=== PATIENT | male | born 1960 | race Caucasian/White ===

== ENCOUNTER → 2016-12-05 | Outpatient (CLI) | payer BC ==
[~2016-12-05] MED LIST: AMOX500C3 PO; ASPI81TA28 PO; ATOR-24 PO; CLOP1TAB15 PO; ISOS-11 PO; LISI-725 PO; METO25TA56 PO; NTRGSL/4 SL; TRAM-10 PO
[2016-12-05 17:44] LABS: BASO % 0.4 %; BASO ABS # 0.04 K/uL (0-0.2); COMPLETE YES; EOS % 2.5 %; HEMATOCRIT 43.9 % (42-52); IG% 0.4 %; LYMPH % 11.8 %; LYMPH ABS # 1.09 K/uL (1.2-3.4); MEAN CELL VOLUME 93.2 fL (80-100); MEAN CORPUSCULAR HEMOGLOBIN 30.6 pg (25-34); MEAN CORPUSCULAR HGB CONC 32.8 g/dl (32-36); MEAN PLATELET VOLUME 11.2 fL (7.4-10.4); MONO % 8.2 %; NEUT % 76.7 %; PLATELET COUNT 162 K/uL (130-400); RED BLOOD COUNT 4.71 M/uL (4.7-6.1)
[2016-12-05 18:00] LABS: ALT/SGPT 34 U/L (12-78); AST/SGOT 22 U/L (15-37); BLOOD UREA NITROGEN 19 mg/dl (7-18); BUN/CREATININE RATIO 17.4 (10-20); CALCIUM 8.9 mg/dl (8.5-10.1); CARBON DIOXIDE 28 mmol/L (21-32); CHLORIDE 104 mmol/L (98-107); GLUCOSE 95 mg/dl (70-99); POTASSIUM 3.7 mmol/L (3.5-5.1); SODIUM 137 mmol/L (136-145)
[2016-12-05 18:11] LABS: ALB/GLOB RATIO 1.3 (0.9-2); ALKALINE PHOSPHATASE 87 U/L (45-117); CHOLESTEROL 120 mg/dl (0-200); CHOLESTEROL/HDL RATIO 2.7; HDL CHOLESTEROL 44 mg/dl; LDL CHOLESTEROL CALCULATED 26 mg/dl; PROSTATE SPECIFIC ANTIGEN 0.538 ng/ml (0.000-4.000); TRIGLYCERIDES 250 mg/dl (0-150); VERY LOW DENSITY LIPOPROT CALC 50 mg/dl
== END | disposition home or self-care (01) ==
LOC: C.LABBFT 14:04
PROVIDERS: ATTEND Internal Medicine
DX: I25.10 Atherosclerotic heart disease of native coronary artery without angina pectoris (principal); D64.9 Anemia, unspecified; Z12.5 Encounter for screening for malignant neoplasm of prostate

== ENCOUNTER → 2017-01-07 | Day surgery (SDC) | payer BC ==
[2016-12-23 13:22] VITALS: BMI 39.0
[~2017-01-07] VITALS: Ht 170.2 cm; Wt 113.6 kg
[~2017-01-07] MED LIST changes: -LISI-725 PO; +PROPOFOL IV EMULSION 10 MG/ML 20 ML VIAL IV ONE; +SODIUM CHLORIDE 0.9% 500ML 500 ML IV ONE
[2017-01-07 08:02] VITALS: Ht 170.2 cm; Wt 113.6 kg
--- NOTE | 2017-01-07 08:42 | Endo History and Physical ---
History & Physical Date of Service: Jan 07, 2017. Chief Complaint: hx colon polyps Referring Physician: Dr. Galloway History of Present Illness 56 yo CM who presents for colonoscopy secondary to history of colon polyps. Past Medical History Angioplasty/Stent, Reflux, High Cholesterol, Sleep Apnea, Hypertension, [place] Past Surgical History Hx Cardiac Surgery: Yes (HEART CATH-1 STENT PLACED) Hx Internal Defibrillator: No Hx Pacemaker: No Hx Abdominal Surgery: Yes (INGUINAL HERNIA X 2, APPY) Hx of Implantable Prosthesis: No Hx Post-Op Nausea and Vomiting: No Hx Cancer Surgery: No Hx Thoracic Surgery: No Hx Orthopedic: Yes (LT FOOT RECONSTRUCTION) Hx Urinary Tract Surgery: No Family History None Social History Smoking Status: Light Tobacco Smoker Hx Substance Use: Yes (MARIJUANA OCCASIONALLY) Hx Alcohol Use: Yes (OCCASIONALLY) Allergies Coded Allergies: Penicillins (Verified Allergy, Unknown, UNSURE OF REASON, 12/23/16) Current Medications Reported Home Medications Medications Dose Route/Sig Max Daily Dose Days Date Category Dose Instructions Ultram (Tramadol HCl) 50 Mg Tab 1 Tab PO Q12 PRN 05/29/15 Reported TAKE 1 TABLE EVERY 12 HOURS NEEDED FOR PAIN Nitrostat (Nitroglycerin) 0.4 Mg Tab 1 Tab SL UD PRN 05/29/[address] 1 TABLET UNDER TONGUE EVERY 5 MINUTES UP TO 3 DOSES NEEDED FOR CHEST PAIN Plavix (Clopidogrel Bisulfate) 75 Mg Tab 75 Mg PO QAM 05/29/15 Reported Lipitor (Atorvastatin Calcium) 40 Mg Tab 1 Tab PO QAM 05/29/15 Reported Aspirin Ec (Aspirin) 81 Mg Tab 81 Mg PO QAM 05/29/15 Reported Amoxil (Amoxicillin) 500 Mg Cap 500 Mg PO UD 05/30/14 Reported take 4 tablets prn 1 hour prior to dental visit Isosorbide Mononitrate ER (Isosorbide Mononitrate) 30 Mg Tabcr 30 Mg PO QAM 05/30/14 Reported Lopressor (Metoprolol Tartrate) 25 Mg Tab 1 Tab PO QAM 05/30/14 Reported Vital Signs Weight (Kilograms): 113.64 Height (Feet): 5 Height (Inches): 7 Date Time Temp Pulse Resp B/P (MAP) Pulse Ox O2 Delivery O2 Flow Rate FiO2 01/07/17 08:14 36.8 60 18 125/71 (89) 96 Room Air Physical Exam General Appearance: WD/WN, no apparent distress Respiratory/Chest: Auscultation: breath sounds normal Cardiovascular: Heart Auscultation: RRR Abdomen: Bowel Sounds: normal Inspection & Palpation: soft, non-distended, no tenderness, guarding & rebound Assessment and Plan Assessment: 56 yo CM who presents for colonoscopy secondary to history of colon polyps. Plan: Proceed with colonoscopy.
--- NOTE | 2017-01-07 09:08 | Discharge Instructions ---
Endoscopy Patient Instructions Date / Procedure(s) Performed Jan 07, 2017. Colonoscopy Allergy Information Coded Allergies: Penicillins (Verified Allergy, Unknown, UNSURE OF REASON, 12/23/16) Discharge Date / Findings Jan 07, 2017. Colon polyps Diverticulosis Medication Instructions Stopped Medication(s): Plavix stopped 5 days ago patient states along with ASA 81mg. OK to resume all medications today as prescribed Reported Home Medications Medications Dose Route/Sig Max Daily Dose Days Date Category Dose Instructions Ultram (Tramadol HCl) 50 Mg Tab 1 Tab PO Q12 PRN 05/29/15 Reported TAKE 1 TABLE EVERY 12 HOURS NEEDED FOR PAIN Nitrostat (Nitroglycerin) 0.4 Mg Tab 1 Tab SL UD PRN 05/29/[address] 1 TABLET UNDER TONGUE EVERY 5 MINUTES UP TO 3 DOSES NEEDED FOR CHEST PAIN Plavix (Clopidogrel Bisulfate) 75 Mg Tab 75 Mg PO QAM 05/29/15 Reported Lipitor (Atorvastatin Calcium) 40 Mg Tab 1 Tab PO QAM 05/29/15 Reported Aspirin Ec (Aspirin) 81 Mg Tab 81 Mg PO QAM 05/29/15 Reported Amoxil (Amoxicillin) 500 Mg Cap 500 Mg PO UD 05/30/14 Reported take 4 tablets prn 1 hour prior to dental visit Isosorbide Mononitrate ER (Isosorbide Mononitrate) 30 Mg Tabcr 30 Mg PO QAM 05/30/14 Reported Lopressor (Metoprolol Tartrate) 25 Mg Tab 1 Tab PO QAM 05/30/14 Reported Provider Instructions Activity Restrictions - No exercising or heavy lifting for 24 hours. - Do not drink alcohol the day of the procedure. - Do not drive a car or operate machinery until the day after the procedure. - Do not make any important decisions or sign important papers in 24 hours after the procedure. Following Day: - Return to full activity which may include returning to work/school. Diet Start your diet with liquids and light foods (jello, soup, juice, toast). Then eat your usual diet if not nauseated. Treatment For Common After Affects For mild abdominal pain, bloating, or excessive gas: - Rest - Eat lightly - Lie on right side Follow-Up Information Follow-up with Dr. Galloway as scheduled Anesthesia Information What You Should Know You have had a procedure that required some medicine to reduce anxiety and discomfort. This treatment is called moderate sedation. After receiving the treatment, you may be sleepy, but you will be able to breathe on your own. The effects of the treatment may last for several hours. Follow these instructions along with Activity/Diet recommendations noted above: * Do NOT do anything where dizziness or clumsiness would be dangerous. * Rest quietly at home today, then you can be up and about tomorrow. * Have a responsible person stay with you the rest of today. * You may have had an I.V. today. If so, you may take the dressing off later today. Recommendations Call your doctor if: * Trouble breathing * Continuous vomiting for more than 24 hours * Temperature above 101 degrees * Severe abdominal pain or bloating * Pain not relieved by pain medicine ordered * There is increased drainage or redness from any incision * A large amount of rectal bleeding greater than 2-3 tablespoons. (If you had a polyp/s removed or have hemorrhoids, a small amount of blood - from the rectum is to be expected.) * You have any unanswered questions or concerns. IN THE EVENT OF A SERIOUS EMERGENCY, GO TO THE NEAREST EMERGENCY ROOM Your discharge instructions were prepared by provider Antwan Sandoval. Patient Instructions Signature Page Tom Scales Patient (or Guardian) Signature/Date: I have read and understand the instructions given to me by my caregivers. Caregiver/RN/Doctor Signature/Date: The above-named patient and/or guardian has received patient instructions on this date. + Original Patient Signature Page (only) stays with chart. Please make copy for patient.
--- NOTE | 2017-01-07 09:15 | GI REPORT ---
Procedure Date: 01/07/2017 8:27 AM Procedure: Colonoscopy Indications: High risk colon cancer surveillance: Personal history of colonic polyps Medicines: Monitored Anesthesia Care Complications: No immediate complications. Estimated Blood Loss: Estimated blood loss: none. Procedure: Pre-Anesthesia Assessment: - Prior to the procedure, a History and Physical was performed, and patient medications and allergies were reviewed. The patient's tolerance of previous anesthesia was also reviewed. The risks and benefits of the procedure and the sedation options and risks were discussed with the patient. All questions were answered, and informed consent was obtained. Prior Anticoagulants: The patient last took aspirin 5 days and Plavix (clopidogrel) 5 days prior to the procedure. ASA Grade Assessment: III - A patient with severe systemic disease. After reviewing the risks and benefits, the patient was deemed in satisfactory condition to undergo the procedure. After I obtained informed consent, the scope was passed under direct vision. Throughout the procedure, the patient's blood pressure, pulse, and oxygen saturations were monitored continuously. The scope was introduced through the anus and advanced to the terminal ileum. The colonoscopy was performed without difficulty. The patient tolerated the procedure well. The quality of the bowel preparation was good. The terminal ileum, ileocecal valve, appendiceal orifice, and rectum were photographed. Findings: A 15 mm polyp was found at the ileocecal valve. The polyp was sessile. The polyp was removed with a hot snare. Resection and retrieval were complete. Two sessile polyps were found in the ascending colon. The polyps were 4 to 6 mm in size. These polyps were removed with a hot snare. Resection and retrieval were complete. Multiple small-mouthed diverticula were found in the sigmoid colon. Impression: - One 15 mm polyp at the ileocecal valve, removed with a hot snare. Resected and retrieved. - Two 4 to 6 mm polyps in the ascending colon, removed with a hot snare. Resected and retrieved. - Diverticulosis in the sigmoid colon. Recommendation: - Resume previous diet. - Continue present medications. - Repeat colonoscopy for surveillance based on pathology results. - Return to primary care physician as previously scheduled. Antwan Sandoval DO 01/07/2017 9:15:31 AM This report has been signed electronically. Note Initiated On: 01/07/2017 8:27 AM I attest to the content of the Intraoperative Record and orders documented therein, exceptions below
[2017-01-07 09:45] VITALS: BP 141/80; PULSE 66; O2SAT 98
--- NOTE | 2017-01-07 09:47 | Anesthesiology Progress Note ---
Anesthesia Post Op Note Date & Time Jan 07, 2017 at 09:46 Vital Signs Pain Intensity: 0 Vital Signs Past 12 Hours Date Time Temp Pulse Resp B/P (MAP) Pulse Ox O2 Delivery O2 Flow Rate FiO2 01/07/17 09:31 59 18 124/67 (86) 97 Room Air 01/07/17 09:14 36.4 64 18 105/53 (70) 96 Room Air 01/07/17 08:14 36.8 60 18 125/71 (89) 96 Room Air Notes Mental Status: alert / awake / arousable, participated in evaluation Pt Amnestic to Procedure: Yes Nausea / Vomiting: adequately controlled Pain: adequately controlled Airway Patency, RR, SpO2: stable & adequate BP & HR: stable & adequate Hydration State: stable & adequate Anesthetic Complications: no major complications apparent
== END | disposition home or self-care (01) ==
LOC: C.GI 07:40
PROVIDERS: ATTEND Internal Medicine
DX: Z12.11 Encounter for screening for malignant neoplasm of colon (principal); D12.0 Benign neoplasm of cecum; D12.2 Benign neoplasm of ascending colon; K57.30 Diverticulosis of large intestine without perforation or abscess without bleeding; Z86.010 Personal history of colon polyps; I25.10 Atherosclerotic heart disease of native coronary artery without angina pectoris; I25.2 Old myocardial infarction; I10 Essential (primary) hypertension; E78.00 Pure hypercholesterolemia, unspecified; G47.30 Sleep apnea, unspecified; K21.9 Gastro-esophageal reflux disease without esophagitis; Z95.5 Presence of coronary angioplasty implant and graft; F17.210 Nicotine dependence, cigarettes, uncomplicated; Z79.02 Long term (current) use of antithrombotics/antiplatelets; Z79.82 Long term (current) use of aspirin; Z79.899 Other long term (current) drug therapy